=== PATIENT | male | born 1985 | race Caucasian/White ===

== ENCOUNTER 2016-04-21 09:35 | Outpatient (CLI) | payer OTHER ==
[2016-04-21 12:54] LABS: #Eosinphils 0.2 thou/uL (0.0-0.7); #Lymphocytes 1.3 thou/uL (1.20-3.40); #Monocytes 0.4 thou/uL (0.11-0.59); #Neutrophils 2.1 thou/uL (1.40-6.50); %Basophils 0.5 % (0.0-1.0); %Lymphocytes 32.1 % (21.0-51.0); Hematocrit 49.7 % (42.0-52.0); Mean Platelet Volume 7.7 fL (7.4-10.4); Red Blood Cell (RBC) Count 5.48 mill/uL (4.70-6.10)
[2016-04-21 13:15] LABS: Hemoglobin A1c 4.8 % (4.0-6.0)
[2016-04-21 13:16] LABS: ALT (SGPT) 34 U/L (0-55); AST (SGOT) 25 U/L (5-34); Alkaline Phosphatase 55 U/L (40-150); Anion Gap 14 mmol/L (10-20); BUN (Urea Nitrogen) 16 mg/dL (8.9-20.6); Bilirubin, Direct 0.3 mg/dL (0.1-0.3); Bilirubin, Total 0.7 mg/dL (0.2-1.2); Calc. Creatinine Clearance 0 mL/min (70-130); Calcium 9.2 mg/dL (7.8-10.44); Carbon Dioxide 26 mmol/L (22-29); Chloride 107 mmol/L (98-107); Estimated GFR-MDRD 76; LDL Cholesterol, Calculated 56 mg/dL; Protein, Total 7.5 g/dL (6.0-8.3)
== END 2016-04-21 09:36 | disposition home or self-care (01) ==
LOC: NAVSJIPCSP 09:35
PROVIDERS: ATTEND Family Medicine
DX: Z00.00 Encounter for general adult medical examination without abnormal findings (principal)
CPT/HCPCS: 36415; 80048; 80061; 80076; 83036; 84443; 85025